=== PATIENT | male | born 1975 | race Caucasian/White ===

== ENCOUNTER 2017-07-23 23:05 | Emergency (ER) | payer SELFPAY, OTHER ==
[2017-07-23] MEDS ORDERED: METHYLPREDNISOLONE 125 MG INJ (23:13)
[2017-07-23] MEDS ORDERED: DIPHENHYDRAMINE 50 MG INJ (23:13)
[2017-07-23] MEDS ORDERED: EPINEPHrine 1 MG INJ (23:13)
[2017-07-23] MEDS: EPINEPHrine 1 MG INJ SC (23:18)
[2017-07-23] MEDS: DIPHENHYDRAMINE 50 MG INJ IV (23:18)
[2017-07-23] MEDS: FAMOTIDINE 20 MG INJ IV (23:20)
[2017-07-23] MEDS: DEXAMETHASONE 10 MG/ML 1 ML INJ IV (23:20)
[2017-07-23] MEDS: ONDANSETRON 4 MG INJ IV (23:20)
== END 2017-07-24 00:43 | disposition home or self-care (01) ==
LOC: E/R 23:05
DX: T78.1XXA Other adverse food reactions, not elsewhere classified, initial encounter (principal)
CPT/HCPCS: 96372; 96374; 96375; 99291-25